=== PATIENT | male | born 1950 | race Two or more races ===

== ENCOUNTER 2018-07-10 20:27 | Emergency (ER) | payer MEDICARE ==
[~2018-07-10] VITALS: Ht 177.8 cm; Wt 99.8 kg
[2018-07-10] MEDS ORDERED: LIDOCAINE 1% HCL (LOCAL ANESTH.) INJ 20ML MDV ID ONE (21:30)
[2018-07-10 23:08] VITALS: BP 159/99
[2018-07-10] MEDS ORDERED: cefTRIAXone W LIDOCAINE 1 GM IM IM ONE (23:30)
[2018-07-10] MEDS ORDERED: cefTRIAXone SOD 1,000 MG VL ONE (23:51)
== END 2018-07-11 00:40 | disposition home or self-care (01) ==
LOC: ER 20:27
DX: S63.287A Dislocation of proximal interphalangeal joint of left little finger, initial encounter (principal); S00.03XA Contusion of scalp, initial encounter; I10 Essential (primary) hypertension; W17.89XA Other fall from one level to another, initial encounter; Y93.89 Activity, other specified; Y92.812 Truck as the place of occurrence of the external cause; Y99.8 Other external cause status
CPT/HCPCS: 26770; 73130; 73140; 96372; 99284; J0696; J2001; 29130

== ENCOUNTER 2020-12-09 22:43 | Emergency (ER) | payer MEDICARE ==
[~2020-12-09] VITALS: Ht 177.8 cm; Wt 93.0 kg
[2020-12-09] MEDS ORDERED: diphenhdrAMINE HCL 25 MG CAP PO ONE (23:45)
[2020-12-09] MEDS ORDERED: methylPREDNISolone SOD SUCC 125 MG/2 ML VL IM ONE (23:45)
[2020-12-10 01:00] VITALS: BP 141/76
== END 2020-12-10 01:15 | disposition home or self-care (01) ==
LOC: ER 22:43
DX: T78.40XA Allergy, unspecified, initial encounter (principal); I10 Essential (primary) hypertension; X58.XXXA Exposure to other specified factors, initial encounter
CPT/HCPCS: 96372; 99283; J2930

== ENCOUNTER 2021-01-10 05:53 | Emergency (ER) | payer MEDICARE, OTHER ==
[~2021-01-10] VITALS: Ht 177.8 cm; Wt 86.2 kg
[2021-01-10] MEDS ORDERED: SODIUM CHLORIDE 0.9% 1,000 ML IV ONE (10:45)
[2021-01-10] MEDS ORDERED: SODIUM CHLORIDE 0.9% 500 ML IV ONE (10:45)
[2021-01-10] MEDS ORDERED: cefTRIAXone 1GM/50ML D5W 50 ML IV ONE (10:45)
[2021-01-10 11:51] LABS: Albumin 3.1 g/dL (3.4-5.0); Calcium 9.2 mg/dL (8.5-10.1); Magnesium 2.1 mg/dL (1.6-2.6); Potassium 4.1 mmol/L (3.5-5.1)
[2021-01-10 11:53] LABS: Basophils # (auto) 0.1 10 ^3/uL (0-0.2); Basophils % (auto) 0.9 % (0.0-2.0); Eosinophils # (auto) 0.2 10 ^3/uL (0-0.8); Eosinophils % (auto) 2.1 % (0.0-7.0); Hematocrit 40.2 % (41.0-53.0); Hemoglobin 13.4 g/dL (13.5-17.5); Lymphocytes # (auto) 1.7 10 ^3/uL (0.4-5.4); Lymphocytes % (auto) 17.6 % (10.0-50.0); Mean Corpuscular Hemoglobin 27.6 pg (28.0-32.0); Mean Corpuscular Hgb Conc. 33.5 g/dL (32.0-36.0); Mean Corpuscular Volume 82.4 fL (80.0-100.0); Monocytes # (auto) 0.7 10 ^3/uL (0-1.3); Monocytes % (auto) 7.3 % (0.0-12.0); Neutrophils # (auto) 6.9 10 ^3/uL (1.6-8.6); Neutrophils % (auto) 72.1 % (37.0-80.0); Platelet Count (auto) 310 10^3/uL (140-450); Red Blood Cells 4.88 10^6/uL (4.5-5.90); Red Cell Distribution Width 13.6 % (11.8-14.3); White Blood Cell 9.5 10^3/uL (4.4-10.8)
[2021-01-10 11:54] LABS: BUN/Creatinine Ratio 13.1; Bilirubin, Total 0.6 mg/dL (0.2-1.0); Total Protein 7.4 g/dL (6.4-8.2)
[2021-01-10 23:59] VITALS: BP 145/85
== END 2021-01-11 00:27 | disposition still patient (30) ==
LOC: ER 05:53
DX: C76.0 Malignant neoplasm of head, face and neck (principal); J02.0 Streptococcal pharyngitis; R59.0 Localized enlarged lymph nodes; R13.10 Dysphagia, unspecified; I12.9 Hypertensive chronic kidney disease with stage 1 through stage 4 chronic kidney disease, or unspecified chronic kidney disease; E11.22 Type 2 diabetes mellitus with diabetic chronic kidney disease; N18.30 Chronic kidney disease, stage 3 unspecified; E78.5 Hyperlipidemia, unspecified; R00.0 Tachycardia, unspecified; Z98.890 Other specified postprocedural states; E44.1 Mild protein-calorie malnutrition; Z68.27 Body mass index [BMI] 27.0-27.9, adult; Z20.822 Contact with and (suspected) exposure to COVID-19
CPT/HCPCS: 36415; 70490; 71046; 80053; 83735; 85025; 87426; 87880; 93005; 96361; 96365; 99285; J0696; J7030